=== PATIENT | male | born 1960 | race African-American/Black ===

== ENCOUNTER 2021-07-08 10:27 | Emergency (ER) | payer OTHER ==
[~2021-07-08] VITALS: Ht 182.9 cm; Wt 86.2 kg
[2021-07-08] MEDS ORDERED: HYDROCODONE/APAP 5MG-325MG TAB PO ONE (10:45)
[2021-07-08] MEDS ORDERED: HYDROCODON-ACE1 EA11 PO (12:12)
[2021-07-08] MEDS ORDERED: CEPHALEXIN500 M1 PO (12:12)
== END 2021-07-08 12:48 | disposition home or self-care (01) ==
LOC: ER 10:30
DX: S68.122A Partial traumatic metacarpophalangeal amputation of right middle finger, initial encounter (principal); W26.8XXA Contact with other sharp object(s), not elsewhere classified, initial encounter; Y92.008 Other place in unspecified non-institutional (private) residence as the place of occurrence of the external cause
CPT/HCPCS: 99284

== ENCOUNTER → 2021-07-12 | Day surgery (SDC) | payer OTHER ==
[~2021-07-12] MED LIST: BUPIVACAINE HCL 0.5% INJ 30 ML VIAL INJ ONE; CEPHALEXIN500 M1 PO; HYDROCODON-ACE1 EA11 PO; LIDOCAINE HCL 1% LOCAL INJ 20 ML VIAL ONE
[2021-07-12 15:50] VITALS: BP 178/90
== END | disposition home or self-care (01) ==
LOC: OR 12:41 → EDSTATUS 13:00
PROVIDERS: ATTEND Orthopaedic Surgery
DX: S68.122A Partial traumatic metacarpophalangeal amputation of right middle finger, initial encounter (principal); R00.1 Bradycardia, unspecified; W23.0XXA Caught, crushed, jammed, or pinched between moving objects, initial encounter; Y92.89 Other specified places as the place of occurrence of the external cause; Y99.0 Civilian activity done for income or pay; Z20.822 Contact with and (suspected) exposure to COVID-19
CPT/HCPCS: 26952; 93005; J0690; J2001; U0002